=== PATIENT | female | born 2000 ===

== ENCOUNTER → 2022-04-10 | Outpatient (CLI) | payer BC ==
[2022-04-12 04:08] LABS: CHLAMYDIA TRACHOMATIS, NAA Positive (Negative)
== END | disposition home or self-care (01) ==
LOC: LAB 09:12 → LAB SHORT 09:12
PROVIDERS: Nurse Practitioner
DX: Z72.51 High risk heterosexual behavior (principal)
CPT/HCPCS: 87491; 87591